=== PATIENT | male | born 1955 | race American Indian/Alaskan Native ===

== ENCOUNTER 2019-10-18 11:21 | Emergency (ER) | payer BC, MEDICARE ==
[2019-10-18 11:29] VITALS: BP 133/88
--- NOTE | 2019-10-18 12:45 | Emergency Department Report ---
ED Extremity Problem HPI - General Chief complaint: Extremity Injury, Lower Stated complaint: FOOT PAIN Time Seen by Provider: 10/18/19 12:29 Source: patient Mode of arrival: Ambulatory Limitations: No Limitations - History of Present Illness Initial comments: This is a pleasant 64-year-old male who presents emergency department chief complaint of left foot pain over the past month. Patient reports he has a callus at the base of his foot and is been causing pain he also reports he has been having some intermittent calf pain and swelling. He has a past medical history of kidney stones, gastric cancer and H. pylori. He denies any associated fever, chills, night sweats, headache, dizziness, blurry vision, nausea, vomiting, diarrhea, chest pain, shortness of breath. His pain is described as cramping rated 6 out of 10 denies any radiating pain. His pain is aggravated by walking and mildly alleviated with immobility. MD Complaint: extremity pain - Related Data Previous Rx's Medication Instructions Recorded Last Taken Type oxyCODONE /ACETAMINOPHEN [Percocet 1 tab PO Q6HR PRN #30 tablet 05/26/15 Unknown Rx 5/325] Ondansetron [Zofran Odt] 4 mg PO Q6H PRN #10 tab.rapdis 06/14/15 Unknown Rx Naproxen [Naprosyn TAB] 500 mg PO BID #20 tablet 10/18/19 Unknown Rx Allergies Allergy/AdvReac Type Severity Reaction Status Date / Time No Known Allergies Allergy Verified 11/09/14 01:41 ED Review of Systems ROS: Stated complaint: FOOT PAIN Other details as noted in HPI Comment: All other systems reviewed and negative Constitutional: denies: chills, fever Eyes: denies: eye pain, eye discharge, vision change ENT: denies: ear pain, throat pain Respiratory: denies: cough, shortness of breath, wheezing Cardiovascular: denies: chest pain, palpitations Endocrine: no symptoms reported Gastrointestinal: denies: abdominal pain, nausea, diarrhea Genitourinary: denies: urgency, dysuria Musculoskeletal: as per HPI, myalgia. denies: back pain, joint swelling, arthralgia Skin: denies: rash, lesions Neurological: denies: headache, weakness, paresthesias Psychiatric: denies: anxiety, depression Hematological/Lymphatic: denies: easy bleeding, easy bruising ED Past Medical Hx - Past Medical History Hx Hypertension: No Hx Renal Disease: No (Renal stones only) Hx Seizures: No Hx Kidney Stones: Yes (ASYMPTOMATIC) Hx Asthma: No Hx HIV: No Additional medical history: H. pylori - Surgical History Additional Surgical History: gastric CA - Social History Smoking Status: Current Every Day Smoker - Medications Home Medications: Home Medications Medication Instructions Recorded Confirmed Last Taken Type oxyCODONE /ACETAMINOPHEN [Percocet 1 tab PO Q6HR PRN #30 tablet 05/26/15 06/14/15 Unknown Rx 5/325] Ondansetron [Zofran Odt] 4 mg PO Q6H PRN #10 tab.rapdis 06/14/15 Unknown Rx Naproxen [Naprosyn TAB] 500 mg PO BID #20 tablet 10/18/19 Unknown Rx ED Physical Exam - General Limitations: No Limitations General appearance: alert, in no apparent distress - Head Head exam: Present: atraumatic, normocephalic - Eye Eye exam: Present: normal appearance - ENT ENT exam: Present: normal exam, normal orophraynx, mucous membranes moist - Neck Neck exam: Present: normal inspection, full ROM. Absent: tenderness, meningismus - Respiratory Respiratory exam: Present: normal lung sounds bilaterally. Absent: respiratory distress, wheezes, rales, rhonchi, stridor - Cardiovascular Cardiovascular Exam: Present: regular rate, normal rhythm, normal heart sounds. Absent: systolic murmur, diastolic murmur, rubs, gallop - GI/Abdominal GI/Abdominal exam: Present: soft, normal bowel sounds. Absent: distended, tenderness, guarding, rebound, rigid - Rectal Rectal exam: Present: deferred - Extremities Exam Extremities exam: Present: normal inspection, full ROM, tenderness, calf tenderness (Tenderness palpation to the left posterior calf, no edema, normal DP and PT pulses. Normal distal sensation capillary refill.), other (There is a 1 cm callus between the first and second metatarsals. There is no erythema, induration or crepitus.) - Back Exam Back exam: Present: normal inspection - Neurological Exam Neurological exam: Present: alert, oriented X3 - Psychiatric Psychiatric exam: Present: normal affect, normal mood - Skin Skin exam: Present: warm, dry, intact, normal color. Absent: rash ED Course Vital Signs 10/18/19 11:26 Temperature 98.5 F Pulse Rate 89 Respiratory 16 Rate Blood Pressure 133/88 O2 Sat by Pulse 96 Oximetry ED Medical Decision Making - Radiology Data Radiology results: report reviewed Vascular Lab Report Signed Patient: PADMA SAMSON MR#: [id number] : 1955 Acct:[id number] Age/Sex: 64 / M ADM Date: 10/18/19 Loc: ED Attending Dr: Ordering Physician: SHERIF SNOW Date of Service: 10/18/19 Procedure(s): VL venous duplex LE LT Accession Number(s): [id number] cc: SHERIF SNOW DUPLEX DOPPLER LOWER EXTREMITY VEINS, LEFT INDICATION / CLINICAL INFORMATION: pain, swelling. Left lower extremity pain and swelling. TECHNIQUE: Duplex doppler imaging was performed through the veins of the left lower extremity using venous compression and other maneuvers. COMPARISON: None available. FINDINGS: LEFT COMMON FEMORAL VEIN: Negative. LEFT FEMORAL VEIN: Negative. LEFT POPLITEAL VEIN: Negative. LEFT CALF VEINS: Negative. ADDITIONAL FINDINGS: None. IMPRESSION: 1. No sonographic evidence for DVT in the left lower extremity. Signer Name: Parker Dahl MD Signed: 10/18/2019 1:26 PM Workstation Name: [id number] Transcribed By: DT Dictated By: Reilly Dahl MD Electronically Authenticated By: Reilly Dahl MD Signed Date/Time: 10/18/19 1326 - Differential Diagnosis dvt, cellulitis, mortons neuroma Critical care attestation.: If time is entered above; I have spent that time in minutes in the direct care of this critically ill patient, excluding procedure time. ED Disposition Clinical Impression: Callus of foot Disposition: DC-01 TO HOME OR SELFCARE Is pt being admited?: No Condition: Stable Instructions: Arthralgia (ED) Prescriptions: Naproxen [Naprosyn TAB] 500 mg PO BID #20 tablet Referrals: PRIMARY CARE, [Primary Care Provider] - 3-5 Days LINDSAY BRICEÑO DPM [Staff Physician] - 3-5 Days Time of Disposition: 14:10
--- NOTE | 2019-10-18 13:30 | Vascular Lab Report ---
DUPLEX DOPPLER LOWER EXTREMITY VEINS, LEFT INDICATION / CLINICAL INFORMATION: pain, swelling. Left lower extremity pain and swelling. TECHNIQUE: Duplex doppler imaging was performed through the veins of the left lower extremity using venous compr ession and other maneuvers. COMPARISON: None available. FINDINGS: LEFT COMMON FEMORAL VEIN: Negative. LEFT FEMORAL VEIN: Negative. LEFT POPLITEAL VEIN: Negative. LEFT CALF VEINS: Negative. ADDITIONAL FINDINGS: None. IMPRESSION: 1. No sonographic evidence for DVT in the left lower extremity. Signer Name: Parker Dahl MD Signed: 10/18/2019 1:26 PM Workstation Name: [id number]
== END 2019-10-18 14:23 | disposition home or self-care (01) ==
LOC: ED 11:21
DX: L84 Corns and callosities (principal); N20.0 Calculus of kidney; F17.200 Nicotine dependence, unspecified, uncomplicated
CPT/HCPCS: 99283